=== PATIENT | female | born 1955 | race Caucasian/White ===

== ENCOUNTER 2022-02-19 05:51 | Inpatient (IN) | payer BC, MEDICARE ==
[2022-02-17 13:26] LABS: BASOPHILS # (AUTO) 0.1 X10'3 (0-0.2); BASOPHILS % (AUTO) 0.8 % (0-1); EOSINOPHILS # (AUTO) 0.5 X10'3 (0-0.9); LYMPHOCYTES # (AUTO) 2.5 X10'3 (1.1-4.8); LYMPHOCYTES % (AUTO) 30.6 % (21-51); MEAN CORPUSCULAR HEMOGLOBIN 29.3 PG (27.0-31.0); MEAN CORPUSCULAR HGB CONC 32.7 g/dL (33.0-36.5); MEAN CORPUSCULAR VOLUME 89.6 FL (78-98); MEAN PLATELET VOLUME 8.8 FL (7.4-10.4); MONOCYTES # (AUTO) 0.7 X10'3 (0-0.9); MONOCYTES % (AUTO) 8.5 % (2-12); NEUTROPHILS # (AUTO) 4.4 X10'3 (1.8-7.7); NEUTROPHILS % (AUTO) 54.1 % (42-75); PRE OP HEMATOCRIT 39.4 % (35.0-45.0); PRE OP HEMOGLOBIN 12.9 g/dL (12.0-16.0); PRE OP PLATELET COUNT 227 X10'3 (140-440); RED CELL DISTRIBUTION WIDTH 14.1 % (11.5-14.5)
[2022-02-17 13:38] LABS: PRE OP PROTIME 10.8 SECONDS (9.0-12.0)
[2022-02-17 13:44] LABS: ALBUMIN 3.6 G/DL (3.4-5.0); ALBUMIN/GLOBULIN RATIO 0.9 (1.1-1.5); ALKALINE PHOSPHATASE 76 IU/L (46-116); BLOOD UREA NITROGEN 17 MG/DL (7-18); BUN/CREATININE RATIO 20.7 (6.6-38.0); CALCIUM 9.3 MG/DL (8.5-10.1); CHLORIDE 103 MMOL/L (99-107); CREATININE 0.82 MG/DL (0.40-0.90); PRE OP ALT 45 U/L (30-65); PRE OP ANION GAP 12 (8-16); PRE OP AST 30 U/L (10-37); PRE OP BILIRUB, TOTAL 0.4 MG/DL (0.0-1.0); PRE OP POTASSIUM 4.2 MMOL/L (3.4-5.1); PRE OP SODIUM 140 MMOL/L (135-145); TOTAL CARBON DIOXIDE 25.2 MMOL/L (24-32); TOTAL PROTEIN 7.6 G/DL (6.4-8.2); eGFR 70 ML/MIN
[2022-02-17 13:53] LABS: PRE OP GLUCOSE 303 MG/DL (70-104)
[2022-02-17 14:11] LABS: UA COLLECTION TYPE CLN CATCH MIDSTREAM
[2022-02-17 14:12] LABS: CLARITY,URINE CLEAR (Clear); COLOR,URINE YELLOW (Yellow); GLUCOSE, URINE 500 mg/dl (Neg); KETONES,URINE NEGATIVE (Neg); LEUKOCYTE ESTERASE ,URINE NEGATIVE (Neg); NITRITES, URINE NEGATIVE (Neg); OCCULT BLOOD,URINE NEGATIVE (Neg); PROTEIN,URINE NEGATIVE (Neg); UROBILINOGEN,URINE 0.2 E.U/dL (0.2-1.0)
[2022-02-17 14:45] LABS: HEMOGLOBIN A1C 7.7 % (4.5-6.2)
[2022-02-18 07:38] LABS: ABG BASE EXCESS -1.1 mmol/L (-2.0-2.0); ABG HCO3 23.4 mmol/L (22.0-26.0); ABG OXYGEN SATURATION 97.5 % (94-97); ABG PCO2 (T) 38.3 mmHg (32.0-45.0); ABG PO2 (T) 96.4 mmHg (75.0-100.0); ALLEN'S TEST POSITIVE; FCOHb 0.4 % (0.0-3.9); FMetHb 0.2 % (0.0-1.5); FO2Hb 96.9 % (94-97); TOTAL HEMOGLOBIN 14.1 G/dl (12.0-16.0)
[~2022-02-19] VITALS: Ht 157.5 cm; Wt 86.7 kg
[2022-02-19] VITALS (18 sets, daily range): BP systolic 103–168; BP diastolic 44–74
[2022-02-19] MEDS: Insulin Reg/NS 100units/100mL 100 ML IV SCH ×3 (05:30→22:19)
[~2022-02-19 05:51] MED LIST: AMLO5TAB16 PO; ASPI-611 PO; ATOR10TA70 PO; CARDITONE; CELE-28 PO; CHOL500050 PO; DOCUMENT DATE & TIME OF BETA-BLOCKER PO ONE; ENAL-79 PO; INSU3INS2 SQ; METF-436 PO; METF-438 PO; METO-395 PO; albuterol 2.5 MG/3 ML nebule NEB ONE; ceFAZolin inj. 2,000 MG in dextrose 5%-water 100 ML IV ONE; famotidine 20mg tablet PO ONE; metoprolol tartrate 12.5mg (1/2 tablet) PO ONE; mupirocin 2% nasal ointment 1gm UD NS ONE; ringers solution, lacted 1,000 ML IV SCH; vancomycin 1,500 MG in NS 300ml IV soln IV ONE
[2022-02-19] MEDS ORDERED: epiNEPHrine 1 mg/ml inj ONE (06:05)
[2022-02-19] MEDS ORDERED: ceFAZolin 1000mg inj ONE (06:05)
[2022-02-19] MEDS ORDERED: LORazepam 2 mg/ml vial IV ONE (07:00)
[2022-02-19] MEDS ORDERED: sodium bicarbonate (8.4%) 1 mEq/ml syringe ONE (08:00)
[2022-02-19] MEDS ORDERED: aminocaproic acid 250 MG/1 ML inj. ONE (08:00)
[2022-02-19] MEDS ORDERED: heparin 1,000 units/ml 10ml inj ONE (08:00)
[2022-02-19] MEDS ORDERED: albumin (human) 25% 100 ML IV solution IV ONE (08:00)
[2022-02-19] MEDS ORDERED: NORepinephrine bitart. inj. IV ONE (08:00)
[2022-02-19] MEDS ORDERED: magnesium sulf 1 GM/2 ML ONE (08:00)
[2022-02-19] MEDS ORDERED: heparin 10,000 units/1 ML INJ ONE (08:00)
[2022-02-19] MEDS ORDERED: calcium chloride 100 MG/1 ML inj IV ONE (08:00)
[2022-02-19] MEDS ORDERED: methylPREDNISolone sod succ 1000mg vial ONE (08:00)
[2022-02-19] MEDS ORDERED: protamine sulf. 10mg/ml inj. IV ONE (08:10)
[2022-02-19] MEDS ORDERED: nitroGLYCERIN in D5W 50mg/250ml (Tridil) infusion IV ONE (08:10)
[2022-02-19] MEDS ORDERED: sevoflurane 250ml liquid IH ONE (08:10)
[2022-02-19] MEDS ORDERED: INSULIN R 100 UNIT in NS 100ML (1 UNIT/1 ML) BAG IV ONE (08:10)
[2022-02-19] MEDS ORDERED: fentaNYL /PF 50mcg/ml 5ml ampule ONE ×3 (08:14→09:05)
[2022-02-19] MEDS ORDERED: MIDAZolam 1mg/ml 10ml vial ONE (08:14)
[2022-02-19] MEDS ORDERED: LIDOcaine 1%/PF 5ML 10 MG/ML VIAL ONE (08:27)
[2022-02-19] MEDS ORDERED: propofol inj 20 ML IV ONE (08:27)
[2022-02-19] MEDS ORDERED: rocuronium 10mg/ml inj IV ONE ×3 (08:27)
[2022-02-19 09:13] LABS: ABG BASE EXCESS -0.1 mmol/L (-2.0-2.0); ABG HCO3 23.5 mmol/L (22.0-26.0); ABG OXYGEN SATURATION 99.5 % (94-97); ABG PCO2 34.9 mmHg (32.0-45.0); ABG PO2 275.3 mmHg (75.0-100.0); CL (ABG) 104 mmol/L (98-110); FCOHb 0.1 % (0.0-3.9); FMetHb 0.3 % (0.0-1.5); FO2Hb 99.1 % (94-97); GLUCOSE (ABG) 209 mg/dl (70-105); IONIZED CA (ABG) 1.11 mmol/L (1.10-1.43); TOTAL HEMOGLOBIN 12.1 G/dl (12.0-16.0)
[2022-02-19 09:47] LABS: ABG BASE EXCESS 4.8 mmol/L (-2.0-2.0); ABG HCO3 28.4 mmol/L (22.0-26.0); ABG OXYGEN SATURATION 99.8 % (94-97); ABG PCO2 37.8 mmHg (32.0-45.0); ABG PO2 558.9 mmHg (75.0-100.0); CL (ABG) 102 mmol/L (98-110); FCOHb 0.4 % (0.0-3.9); FMetHb 0.3 % (0.0-1.5); FO2Hb 99.1 % (94-97); GLUCOSE (ABG) 171 mg/dl (70-105); IONIZED CA (ABG) 0.93 mmol/L (1.10-1.43); K (ABG) 3.6 mmol/L (3.5-5.0); TOTAL HEMOGLOBIN 8.3 G/dl (12.0-16.0)
[2022-02-19 10:22] LABS: ACT @ 1.70 U 304 SEC (193-297); ACT @ 2.84 U 439 SEC (260-420); BASELINE ACT 162 SEC (101-148); PATIENT WEIGHT 79.0k KG
[2022-02-19 10:26] LABS: ABG BASE EXCESS VENOUS 4.1 mmol/L (-2.0 - 2.0); ABG HCO3 VENOUS 28.6 mmol/L (21.0-28.0); ABG PO2 VENOUS 47.6 mmHg (25.0-35.0); CL (ABG) 103 mmol/L (98-110); FCOHb VENOUS 0.5 % (0.0- 3.9); FHHb VENOUS 13.8 %; FMetHb VENOUS 0.3 % (0.0 - 0.5); FO2Hb VENOUS 85.4 %; GLUCOSE (ABG) 185 mg/dl (70-105); IONIZED CA (ABG) 1.17 mmol/L (1.10-1.43); K (ABG) 3.8 mmol/L (3.5-5.0); TOTAL HEMOGLOBIN 8.9 G/dl (12.0-16.0)
[2022-02-19 10:47] LABS: ABG BASE EXCESS 0.4 mmol/L (-2.0-2.0); ABG HCO3 23.9 mmol/L (22.0-26.0); ABG OXYGEN SATURATION 99.6 % (94-97); ABG PCO2 33.5 mmHg (32.0-45.0); ABG PO2 357.3 mmHg (75.0-100.0); CL (ABG) 102 mmol/L (98-110); FCOHb 0.7 % (0.0-3.9); FMetHb 0.3 % (0.0-1.5); FO2Hb 98.6 % (94-97); GLUCOSE (ABG) 177 mg/dl (70-105); IONIZED CA (ABG) 1.46 mmol/L (1.10-1.43); TOTAL HEMOGLOBIN 7.7 G/dl (12.0-16.0)
[2022-02-19 11:03] LABS: ABG BASE EXCESS VENOUS 1.1 mmol/L (-2.0 - 2.0); ABG HCO3 VENOUS 25.6 mmol/L (21.0-28.0); ABG PCO2 VENOUS 40.1 mmHg (38.0-51.0); ABG PO2 VENOUS 29.1 mmHg (25.0-35.0); CL (ABG) 102 mmol/L (98-110); FCOHb VENOUS 0.6 % (0.0- 3.9); FHHb VENOUS 40.7 %; FMetHb VENOUS 0.1 % (0.0 - 0.5); FO2Hb VENOUS 58.6 %; GLUCOSE (ABG) 180 mg/dl (70-105); IONIZED CA (ABG) 1.21 mmol/L (1.10-1.43); K (ABG) 3.8 mmol/L (3.5-5.0); TOTAL HEMOGLOBIN 8.5 G/dl (12.0-16.0)
[2022-02-19 11:07] LABS: ACTIVATED CLOTTING TIME 135 SEC (101-148)
[2022-02-19] MEDS ORDERED: nitroGLYCERIN-Tridil 50MG/D5W 250 ML IV SCH (11:15)
[2022-02-19] MEDS ORDERED: sodium phosphate inj. 15 MMOL in dextrose 5%-water 250 ML IV PRN (11:15)
[2022-02-19] MEDS ORDERED: metoclopramide 5 mg/ml inj IV PRN (11:15)
[2022-02-19] MEDS ORDERED: insulin glargine (Lantus) pen - multi-dose SQ PRN (11:15)
[2022-02-19] MEDS ORDERED: sodium phosphate inj. 30 MMOL in dextrose 5%-water 250 ML IV PRN (11:15)
[2022-02-19] MEDS ORDERED: dextrose 50%-water 50ml dispensing syringe IV PRN (11:15)
[2022-02-19] MEDS ORDERED: Neutra Phos packet PO PRN (11:15)
[2022-02-19] MEDS ORDERED: magnesium citrate 296ml oral solution PO PRN (11:15)
[2022-02-19] MEDS ORDERED: sodium chloride 0.45% 1,000 ML IV SCH (11:15)
[2022-02-19] MEDS ORDERED: mineral oil 133ml enema RC PRN (11:15)
[2022-02-19] MEDS ORDERED: magnesium hydroxide 30ml (MOM) UD suspension PO PRN (11:15)
[2022-02-19] MEDS ORDERED: niCARDipine-NS 40mg/200ml IVPB 200 ML IV PRN (11:15)
[2022-02-19] MEDS ORDERED: magnesium 4gm in 100ml NS 100 ML IV PRN (11:15)
[2022-02-19] MEDS ORDERED: bisacodyl 10mg suppository rectal RC PRN (11:15)
[2022-02-19] MEDS ORDERED: acetaminophen 325mg tablet PO PRN ×2 (11:15)
[2022-02-19] MEDS ORDERED: potassium Cl 20 mEq SR tablet PO PRN (11:15)
[2022-02-19] MEDS ORDERED: ondansetron/PF 4mg/2ml inj IV PRN (11:15)
[2022-02-19] MEDS ORDERED: potassium CL 10mEq/100ml bag 100 ML IV PRN (11:15)
[2022-02-19 12:00] LABS: ABG HCO3 23.8 mmol/L (22.0-26.0); ABG OXYGEN SATURATION 99.1 % (94-97); ABG PO2 (T) 295.8 mmHg (75.0-100.0); FCOHb 0.2 % (0.0-3.9); FMetHb 0.4 % (0.0-1.5); FO2Hb 98.5 % (94-97); PEEP 5 cm H2O; RESPIRATORY RATE 14 b/min; TIDAL VOLUME 400 mL; TOTAL HEMOGLOBIN 11.1 G/dl (12.0-16.0)
[2022-02-19 12:01] LABS: BASOPHILS # (AUTO) 0.1 X10'3 (0-0.2); BASOPHILS % (AUTO) 0.8 % (0-1); EOSINOPHILS # (AUTO) 0.3 X10'3 (0-0.9); EOSINOPHILS % (AUTO) 2.3 % (0-6); HEMATOCRIT 30.7 % (35.0-45.0); HEMOGLOBIN 10.2 g/dl (12.0-16.0); LYMPHOCYTES # (AUTO) 2.3 X10'3 (1.1-4.8); LYMPHOCYTES % (AUTO) 17.8 % (21-51); MEAN CORPUSCULAR HEMOGLOBIN 29.7 PG (27.0-31.0); MEAN CORPUSCULAR HGB CONC 33.3 g/dL (33.0-36.5); MEAN CORPUSCULAR VOLUME 89.2 FL (78-98); MEAN PLATELET VOLUME 8.5 FL (7.4-10.4); MONOCYTES # (AUTO) 0.9 X10'3 (0-0.9); MONOCYTES % (AUTO) 6.5 % (2-12); NEUTROPHILS # (AUTO) 9.6 X10'3 (1.8-7.7); NEUTROPHILS % (AUTO) 72.6 % (42-75); PLATELET COUNT 146 X10'3 (140-440); RED BLOOD COUNT 3.44 X10'6 (4.20-5.60); RED CELL DISTRIBUTION WIDTH 13.5 % (11.5-14.5); WHITE BLOOD COUNT 13.2 X10'3 (4.5-11.0)
[2022-02-19 12:13] LABS: ALANINE AMINOTRANSFERASE 21 U/L (12-78); ALBUMIN 3.3 G/DL (3.4-5.0); ALBUMIN/GLOBULIN RATIO 1.5 (1.1-1.5); ALKALINE PHOSPHATASE 41 IU/L (46-116); ANION GAP 8 (8-16); APTT 30 SECONDS (22-32); ASPARTATE AMINO TRANSFERASE 27 U/L (10-37); BILIRUBIN,TOTAL 0.6 MG/DL (0.1-1.0); BLOOD UREA NITROGEN 9 MG/DL (7-18); CHLORIDE 106 MMOL/L (99-107); CREATININE 0.69 MG/DL (0.40-0.90); GLUCOSE 185 MG/DL (70-104); MAGNESIUM 2.2 MG/DL (1.5-2.4); PHOSPHORUS 3.1 MG/DL (2.3-4.5); POTASSIUM 3.6 MMOL/L (3.5-5.1); SODIUM 141 MMOL/L (135-145); TOTAL CARBON DIOXIDE 27.5 MMOL/L (24-32); TOTAL PROTEIN 5.5 G/DL (6.4-8.2); eGFR 85 ML/MIN
[2022-02-19] MEDS: morphine 4 MG/ML inj SYRINge IV PRN ×2 (12:33→13:56)
[2022-02-19] MEDS: albumin (Human) 5% 250ml 250 ML IV PRN ×3 (12:45→16:08)
[2022-02-19] MEDS: magnesium 2GM in 50ml NS 50 ML IV PRN (12:49)
[2022-02-19] MEDS: potassium Cl 20mEq/100mL bag 100 ML IV PRN ×5 (12:51→20:55)
--- NOTE | 2022-02-19 13:28 | NUR ---
CABG Consult: Pt s/p CABGx4 this admit w/ hx T2DM A1C 7.7% per EMR. Pt would benefit from DM/CABG eds once appropriate post-op prior to discharge. Addendum: 02/19/22 at [address] Amended: Links added.
--- NOTE | 2022-02-19 15:37 | NUR ---
PT extubated to 5lpm NC, increased to 7lpm Oxymask, pt mouth breathing, following all commands, still sleepy from sedation, no stridor present, plan to titrate fio2 as tolerated. RN aware. Addendum: 02/19/22 at 1538 by Gale Anyaa RT Amended: Links added.
[2022-02-19] MEDS: ceFAZolin/D5W- 1GM premix 50 ML IV SCH (16:07)
--- NOTE | 2022-02-19 16:12 | NUR ---
Received to room 2012, accompanied by MDs and surgical crew. Placed on ventilator, to cardiac sonographer, arterial line and PA line pressure monitored. Chest tubes to suction at 20 cm. Holder cath to gravity drainage. Dressings are dry and intact. See assessment record. All vasoactive drugs are infusing via central line.
[2022-02-19 18:05] LABS: BASOPHILS # (AUTO) 0.2 X10'3 (0-0.2); EOSINOPHILS % (AUTO) 0.1 % (0-6); HEMATOCRIT 28.8 % (35.0-45.0); HEMOGLOBIN 9.4 g/dl (12.0-16.0); LYMPHOCYTES # (AUTO) 1.2 X10'3 (1.1-4.8); LYMPHOCYTES % (AUTO) 6.9 % (21-51); MEAN CORPUSCULAR HEMOGLOBIN 29.4 PG (27.0-31.0); MEAN CORPUSCULAR HGB CONC 32.6 g/dL (33.0-36.5); MEAN CORPUSCULAR VOLUME 90.2 FL (78-98); MEAN PLATELET VOLUME 8.7 FL (7.4-10.4); MONOCYTES # (AUTO) 0.8 X10'3 (0-0.9); MONOCYTES % (AUTO) 4.9 % (2-12); NEUTROPHILS # (AUTO) 15.1 X10'3 (1.8-7.7); NEUTROPHILS % (AUTO) 87.1 % (42-75); PLATELET COUNT 170 X10'3 (140-440); RED BLOOD COUNT 3.19 X10'6 (4.20-5.60); RED CELL DISTRIBUTION WIDTH 14.1 % (11.5-14.5); WHITE BLOOD COUNT 17.3 X10'3 (4.5-11.0)
[2022-02-19 18:06] LABS: ALBUMIN 4.3 G/DL (3.4-5.0); ANION GAP 14 (8-16); BLOOD UREA NITROGEN 10 MG/DL (7-18); BUN/CREATININE RATIO 9.1 (6.6-38.0); CHLORIDE 109 MMOL/L (99-107); GLUCOSE 263 MG/DL (70-104); MAGNESIUM 2.4 MG/DL (1.5-2.4); PHOSPHORUS 4.8 MG/DL (2.3-4.5); POTASSIUM 3.7 MMOL/L (3.5-5.1); SODIUM 144 MMOL/L (135-145); TOTAL CARBON DIOXIDE 21.1 MMOL/L (24-32); eGFR 50 ML/MIN
--- NOTE | 2022-02-19 18:15 | NUR ---
Patient in room CICU 2011. I have received report from Maura CONNORS and had the opportunity to ask questions and assume patient care.
--- NOTE | 2022-02-19 18:15 | NUR ---
Problems reprioritized. Patient report given, questions answered & plan of care reviewed with Brina CONNORS.
[2022-02-19] MEDS: vancomycin/NS 1 GM ADD-VANTAGE 250 ML IV SCH (19:47)
[2022-02-19] MEDS: morphine 2 MG/ML inj. syringe IV PRN (19:48)
[2022-02-19] MEDS: mupirocin 2% ointment 22GM NS SCH (19:48)
[2022-02-19] MEDS: sennosides/docusate sodium tablet PO SCH (20:00)
--- NOTE | 2022-02-19 20:49 | NUR ---
Patient is impulsive, pulls off NC and tries to pull at PA line. Requiring close monitoring. Falls asleep quickly.
[2022-02-19] MEDS: atorvastatin 10mg tablet PO SCH (21:00)
[2022-02-19 21:29] LABS: PLATELET ESTIMATE NORMAL; TOTAL CELLS COUNTED 100
[2022-02-20] VITALS (23 sets, daily range): BP systolic 91–123; BP diastolic 46–62
[2022-02-20] MEDS: morphine 2 MG/ML inj. syringe IV PRN ×2 (00:08→02:12)
[2022-02-20] MEDS: ceFAZolin/D5W- 1GM premix 50 ML IV SCH ×3 (00:22→16:41)
[2022-02-20 04:10] LABS: ALANINE AMINOTRANSFERASE 20 U/L (12-78); ALBUMIN 3.9 G/DL (3.4-5.0); ALBUMIN/GLOBULIN RATIO 1.7 (1.1-1.5); ALKALINE PHOSPHATASE 34 IU/L (46-116); ANION GAP 10 (8-16); ASPARTATE AMINO TRANSFERASE 29 U/L (10-37); BILIRUBIN,TOTAL 0.5 MG/DL (0.1-1.0); BLOOD UREA NITROGEN 13 MG/DL (7-18); BUN/CREATININE RATIO 18.3 (6.6-38.0); CALCIUM 8.5 MG/DL (8.5-10.1); CHLORIDE 109 MMOL/L (99-107); CREATININE 0.71 MG/DL (0.40-0.90); GLUCOSE 185 MG/DL (70-104); MAGNESIUM 2.1 MG/DL (1.5-2.4); PHOSPHORUS 3.8 MG/DL (2.3-4.5); POTASSIUM 4.8 MMOL/L (3.5-5.1); SODIUM 142 MMOL/L (135-145); TOTAL CARBON DIOXIDE 22.6 MMOL/L (24-32); TOTAL PROTEIN 6.2 G/DL (6.4-8.2); eGFR 83 ML/MIN
[2022-02-20 04:19] LABS: BASOPHILS # (AUTO) 0.1 X10'3 (0-0.2); BASOPHILS % (AUTO) 0.7 % (0-1); EOSINOPHILS # (AUTO) 0.1 X10'3 (0-0.9); EOSINOPHILS % (AUTO) 0.4 % (0-6); HEMATOCRIT 27.1 % (35.0-45.0); HEMOGLOBIN 8.9 g/dl (12.0-16.0); LYMPHOCYTES # (AUTO) 0.7 X10'3 (1.1-4.8); LYMPHOCYTES % (AUTO) 4.2 % (21-51); MEAN CORPUSCULAR HEMOGLOBIN 29.6 PG (27.0-31.0); MEAN CORPUSCULAR HGB CONC 32.7 g/dL (33.0-36.5); MEAN CORPUSCULAR VOLUME 90.5 FL (78-98); MEAN PLATELET VOLUME 9.3 FL (7.4-10.4); MONOCYTES # (AUTO) 0.8 X10'3 (0-0.9); NEUTROPHILS # (AUTO) 14.4 X10'3 (1.8-7.7); NEUTROPHILS % (AUTO) 89.7 % (42-75); PLATELET COUNT 113 X10'3 (140-440); RED BLOOD COUNT 2.99 X10'6 (4.20-5.60); RED CELL DISTRIBUTION WIDTH 14.1 % (11.5-14.5); WHITE BLOOD COUNT 16.1 X10'3 (4.5-11.0)
[2022-02-20] MEDS: morphine 4 MG/ML inj SYRINge IV PRN (04:54)
[2022-02-20] MEDS: magnesium 2GM in 50ml NS 50 ML IV PRN (04:54)
--- NOTE | 2022-02-20 05:17 | NUR ---
Dangled patient at side of the bed with two person assist. Able to stand at side of the bed for a few minutes. Was able to do 3 breaths on flutter valve. Returned to bed without incident. Medicated patient with Morphine for pain level of 7 per patient statement.
--- NOTE | 2022-02-20 06:18 | NUR ---
Problems reprioritized. Patient report given, questions answered & plan of care reviewed with Lorena CONNORS.
[2022-02-20] MEDS ORDERED: ketorolac trometh. 30mg/ml inj. IM SCH (08:00)
[2022-02-20] MEDS: mupirocin 2% ointment 22GM NS SCH ×2 (08:30→20:25)
[2022-02-20] MEDS: metoprolol tartrate 12.5mg (1/2 tablet) PO SCH ×2 (08:30→20:00)
[2022-02-20] MEDS: cholecalciferol (vitamin D3) 1,000 unit (25mcg) tablet PO SCH (08:30)
[2022-02-20] MEDS: aspirin 325mg tablet, delayed-release (Ecotrin) PO SCH (08:30)
[2022-02-20] MEDS: sennosides/docusate sodium tablet PO SCH ×2 (08:31→20:24)
[2022-02-20] MEDS: insulin glargine (Lantus) pen - multi-dose SQ SCH (08:40)
[2022-02-20] MEDS: insulin Lispro (HumaLOG) vial - multi-dose SQ SCH ×2 (08:43→17:21)
[2022-02-20] MEDS: vancomycin/NS 1 GM ADD-VANTAGE 250 ML IV SCH ×2 (08:56→20:25)
--- NOTE | 2022-02-20 10:23 | NUR ---
Right radial arterial line, right pulmonary artery lines, and right internal jugular introducer d/c'd per MD order. Patient tolerated well. Cannula tips intact.
--- NOTE | 2022-02-20 13:35 | NUR ---
Patient in room CICU 2011. I have received report from Lorena CONNORS and had the opportunity to ask questions and assume patient care.
[2022-02-20] MEDS: ketorolac trometh. 30mg/ml inj. IV SCH ×2 (13:44→20:25)
--- NOTE | 2022-02-20 14:18 | NUR ---
Problems reprioritized. Patient report given, questions answered & plan of care reviewed with WAYLON Sykes.
[2022-02-20] MEDS: HYDROcodone/acetaminophen 10/325mg tab PO PRN (14:51)
--- NOTE | 2022-02-20 14:54 | NUR ---
Family, Family to visit pt after pt up for PT. Pt states Torodol did not help her pain. After PT states pain a /. [place] for pain given. 2 given based on pain level. After scanned, asked if she could take just one. Pt encourged to take both. Educated about taking pain meds to allow her to cough/deep breath. Reminder about sternal precautions as well with daughter in room. Pt eating lunch now.
[2022-02-20] MEDS: atorvastatin 10mg tablet PO SCH (20:24)
[2022-02-20] MEDS: Insulin Reg/NS 100units/100mL 100 ML IV SCH (20:35)
[2022-02-21] VITALS (17 sets, daily range): BP systolic 86–129; BP diastolic 46–70
[2022-02-21] MEDS: ceFAZolin/D5W- 1GM premix 50 ML IV SCH (01:49)
[2022-02-21 03:55] LABS: BASOPHILS % (AUTO) 0.1 % (0-1); EOSINOPHILS % (AUTO) 0 % (0-6); HEMATOCRIT 24.4 % (35.0-45.0); LYMPHOCYTES # (AUTO) 1.2 X10'3 (1.1-4.8); LYMPHOCYTES % (AUTO) 7.8 % (21-51); MEAN CORPUSCULAR HEMOGLOBIN 29.4 PG (27.0-31.0); MEAN CORPUSCULAR HGB CONC 32.7 g/dL (33.0-36.5); MEAN CORPUSCULAR VOLUME 90.1 FL (78-98); MONOCYTES % (AUTO) 6.3 % (2-12); NEUTROPHILS # (AUTO) 13.2 X10'3 (1.8-7.7); NEUTROPHILS % (AUTO) 85.8 % (42-75); PLATELET COUNT 110 X10'3 (140-440); RED CELL DISTRIBUTION WIDTH 14.3 % (11.5-14.5); WHITE BLOOD COUNT 15.4 X10'3 (4.5-11.0)
[2022-02-21 04:04] LABS: ALBUMIN 3.2 G/DL (3.4-5.0); ANION GAP 3 (8-16); BLOOD UREA NITROGEN 26 MG/DL (7-18); BUN/CREATININE RATIO 29.2 (6.6-38.0); CALCIUM 7.8 MG/DL (8.5-10.1); CHLORIDE 107 MMOL/L (99-107); CREATININE 0.89 MG/DL (0.40-0.90); GLUCOSE 244 MG/DL (70-104); MAGNESIUM 2.5 MG/DL (1.5-2.4); PHOSPHORUS 4.4 MG/DL (2.3-4.5); POTASSIUM 5.3 MMOL/L (3.5-5.1); SODIUM 137 MMOL/L (135-145); TOTAL CARBON DIOXIDE 27.1 MMOL/L (24-32); eGFR 64 ML/MIN
[2022-02-21] MEDS: ketorolac trometh. 30mg/ml inj. IV SCH ×4 (04:26→20:08)
[2022-02-21] MEDS: HYDROcodone/acetaminophen 10/325mg tab PO PRN ×2 (05:26→09:39)
[2022-02-21] MEDS ORDERED: furosemide 40mg/4ml inj IV ONE (08:10)
[2022-02-21] MEDS: cholecalciferol (vitamin D3) 1,000 unit (25mcg) tablet PO SCH (08:10)
[2022-02-21] MEDS: metoprolol tartrate 12.5mg (1/2 tablet) PO SCH ×2 (08:11→19:56)
[2022-02-21] MEDS: pantoprazole 40mg Tablet.DR PO SCH (08:11)
[2022-02-21] MEDS: potassium Cl 20 mEq SR tablet PO SCH ×2 (08:11→19:57)
[2022-02-21] MEDS: magnesium Cl slow-release 64mg tablet PO SCH ×2 (08:11→19:57)
[2022-02-21] MEDS: sennosides/docusate sodium tablet PO SCH ×2 (08:11→19:57)
[2022-02-21] MEDS: mupirocin 2% ointment 22GM NS SCH (08:11)
[2022-02-21] MEDS: aspirin 325mg tablet, delayed-release (Ecotrin) PO SCH (08:11)
[2022-02-21] MEDS: insulin glargine (Lantus) pen - multi-dose SQ SCH (08:14)
[2022-02-21] MEDS: insulin Lispro (HumaLOG) vial - multi-dose SQ SCH ×4 (08:25→21:50)
--- NOTE | 2022-02-21 11:58 | NUR ---
CABG Consult: Pt post-op day 2 s/p CABGx4 PO 0-25% initial meals past 1.5 days. Noted pt remains quite tired likely impacting PO. Pt sleeping during RD visit; written DM ed w/ RD contact information placed in pt chart. Pt would benefit from written/verbal high protein/HH diet eds once more appropriate. Addendum: 02/21/22 at [address] Amended: Links added.
--- NOTE | 2022-02-21 16:10 | NUR ---
Patient in room PCU 3019. I have received report from Joana CONNORS and had the opportunity to ask questions and assume patient care.
--- NOTE | 2022-02-21 17:39 | NUR ---
patient appears stable in bed eating fruit daughter present. provena in place to sternal incision . prophylactic optifoam to back CDI. No other issues at this time will continue to monitor
--- NOTE | 2022-02-21 18:34 | NUR ---
assisted patient to bathroom, able to void post remov al of brice catheter. report given to farhat CONNORS
[2022-02-21] MEDS: atorvastatin 10mg tablet PO SCH (21:15)
[2022-02-22 02:00] VITALS: BP 115/63
[2022-02-22] MEDS: ketorolac trometh. 30mg/ml inj. IV SCH ×4 (02:52→20:00)
[2022-02-22 06:00] VITALS: BP 130/68
--- NOTE | 2022-02-22 06:37 | NUR ---
Problems reprioritized. Patient report given,WAYLON Horta, questions answered & plan of care reviewed with
[2022-02-22 07:14] LABS: BASOPHILS % (AUTO) 0.3 % (0-1); EOSINOPHILS # (AUTO) 0.1 X10'3 (0-0.9); EOSINOPHILS % (AUTO) 1.1 % (0-6); HEMATOCRIT 25.8 % (35.0-45.0); HEMOGLOBIN 8.4 g/dl (12.0-16.0); LYMPHOCYTES # (AUTO) 1.9 X10'3 (1.1-4.8); LYMPHOCYTES % (AUTO) 17.4 % (21-51); MEAN CORPUSCULAR HEMOGLOBIN 29.9 PG (27.0-31.0); MEAN CORPUSCULAR HGB CONC 32.7 g/dL (33.0-36.5); MEAN CORPUSCULAR VOLUME 91.5 FL (78-98); MEAN PLATELET VOLUME 9.1 FL (7.4-10.4); MONOCYTES # (AUTO) 0.8 X10'3 (0-0.9); MONOCYTES % (AUTO) 7.6 % (2-12); NEUTROPHILS # (AUTO) 8.1 X10'3 (1.8-7.7); NEUTROPHILS % (AUTO) 73.6 % (42-75); PLATELET COUNT 136 X10'3 (140-440); RED BLOOD COUNT 2.82 X10'6 (4.20-5.60); RED CELL DISTRIBUTION WIDTH 14.3 % (11.5-14.5)
[2022-02-22 07:24] LABS: ANION GAP 5 (8-16); BLOOD UREA NITROGEN 27 MG/DL (7-18); BUN/CREATININE RATIO 34.6 (6.6-38.0); CALCIUM 8.3 MG/DL (8.5-10.1); CHLORIDE 109 MMOL/L (99-107); CREATININE 0.78 MG/DL (0.40-0.90); GLUCOSE 183 MG/DL (70-104); POTASSIUM 4.8 MMOL/L (3.5-5.1); SODIUM 142 MMOL/L (135-145); TOTAL CARBON DIOXIDE 27.8 MMOL/L (24-32); eGFR 74 ML/MIN
[2022-02-22] MEDS: sennosides/docusate sodium tablet PO SCH ×2 (08:00→20:00)
[2022-02-22] MEDS: magnesium Cl slow-release 64mg tablet PO SCH ×2 (08:00→20:00)
[2022-02-22] MEDS: potassium Cl 20 mEq SR tablet PO SCH ×2 (08:00→20:00)
[2022-02-22] MEDS: metoprolol tartrate 12.5mg (1/2 tablet) PO SCH ×2 (09:10→20:18)
[2022-02-22] MEDS: aspirin 325mg tablet, delayed-release (Ecotrin) PO SCH (09:11)
[2022-02-22] MEDS: cholecalciferol (vitamin D3) 1,000 unit (25mcg) tablet PO SCH (09:12)
[2022-02-22] MEDS: pantoprazole 40mg Tablet.DR PO SCH (09:12)
[2022-02-22] MEDS: insulin glargine (Lantus) pen - multi-dose SQ SCH (09:22)
[2022-02-22] MEDS: insulin Lispro (HumaLOG) vial - multi-dose SQ SCH ×3 (09:24→20:07)
[2022-02-22 11:00] VITALS: BP 118/63
[2022-02-22] MEDS: HYDROcodone/acetaminophen 10/325mg tab PO PRN ×2 (14:03→20:15)
[2022-02-22 15:00] VITALS: BP 129/63
[2022-02-22 18:00] VITALS: BP 136/67
--- NOTE | 2022-02-22 18:29 | NUR ---
Pt is able to repositions herself throughout shift. Hourly rounding have been performed and patients' needs have been met.
[2022-02-22] MEDS: atorvastatin 10mg tablet PO SCH (20:15)
[2022-02-22 22:00] VITALS: BP 122/71
[2022-02-23 02:00] VITALS: BP 139/69
[2022-02-23] MEDS: ketorolac trometh. 30mg/ml inj. IV SCH ×2 (02:00→08:00)
[2022-02-23 07:00] VITALS: BP 134/73
[2022-02-23 07:48] LABS: BASOPHILS # (AUTO) 0.1 X10'3 (0-0.2); BASOPHILS % (AUTO) 0.6 % (0-1); EOSINOPHILS # (AUTO) 0.5 X10'3 (0-0.9); EOSINOPHILS % (AUTO) 5.4 % (0-6); HEMATOCRIT 27.2 % (35.0-45.0); HEMOGLOBIN 9.1 g/dl (12.0-16.0); LYMPHOCYTES # (AUTO) 2.4 X10'3 (1.1-4.8); LYMPHOCYTES % (AUTO) 24.4 % (21-51); MEAN CORPUSCULAR HEMOGLOBIN 30.3 PG (27.0-31.0); MEAN CORPUSCULAR HGB CONC 33.6 g/dL (33.0-36.5); MEAN CORPUSCULAR VOLUME 90.2 FL (78-98); MEAN PLATELET VOLUME 8.7 FL (7.4-10.4); MONOCYTES # (AUTO) 0.9 X10'3 (0-0.9); MONOCYTES % (AUTO) 9.3 % (2-12); NEUTROPHILS # (AUTO) 5.9 X10'3 (1.8-7.7); NEUTROPHILS % (AUTO) 60.3 % (42-75); PLATELET COUNT 174 X10'3 (140-440); RED BLOOD COUNT 3.01 X10'6 (4.20-5.60); WHITE BLOOD COUNT 9.8 X10'3 (4.5-11.0)
[2022-02-23 07:49] LABS: ALBUMIN 2.9 G/DL (3.4-5.0); ANION GAP 6 (8-16); BLOOD UREA NITROGEN 19 MG/DL (7-18); BUN/CREATININE RATIO 26.8 (6.6-38.0); CALCIUM 8.5 MG/DL (8.5-10.1); CHLORIDE 109 MMOL/L (99-107); CREATININE 0.71 MG/DL (0.40-0.90); GLUCOSE 133 MG/DL (70-104); POTASSIUM 4.2 MMOL/L (3.5-5.1); SODIUM 143 MMOL/L (135-145); TOTAL CARBON DIOXIDE 27.7 MMOL/L (24-32); eGFR 83 ML/MIN
[2022-02-23] MEDS ORDERED: HYDR-3972 PO (07:49)
--- NOTE | 2022-02-23 07:52 | NUR ---
Patient in room PCU 3019. I have received report from Prachi MOON and had the opportunity to ask questions and assume patient care.
[2022-02-23] MEDS: insulin glargine (Lantus) pen - multi-dose SQ SCH (08:00)
[2022-02-23] MEDS: magnesium Cl slow-release 64mg tablet PO SCH (08:00)
[2022-02-23] MEDS: potassium Cl 20 mEq SR tablet PO SCH (08:00)
--- NOTE | 2022-02-23 09:00 | NUR ---
Patient was given her scheduled Lantus dose of 30 units this morning, but i did not give her the correctional/nutritional dose of humalog per charge nurse since she is being discharged right now. I educated the patient and her on the importance of keeping track of her blood sugars at home, especially because of her incision site. Patient said that she understands the importance of this and will make sure she keeps track.
[2022-02-23] MEDS: cholecalciferol (vitamin D3) 1,000 unit (25mcg) tablet PO SCH (09:08)
[2022-02-23] MEDS: sennosides/docusate sodium tablet PO SCH (09:08)
[2022-02-23] MEDS: aspirin 325mg tablet, delayed-release (Ecotrin) PO SCH (09:08)
[2022-02-23] MEDS: pantoprazole 40mg Tablet.DR PO SCH (09:08)
[2022-02-23 09:09] VITALS: BP_SYST 134
[2022-02-23] MEDS: metoprolol tartrate 12.5mg (1/2 tablet) PO SCH (09:09)
--- NOTE | 2022-02-23 10:20 | NUR ---
Discharge instructions reviewed with patient and her . Questions answered and education given on importance of checking her glucose and administering insulin appropriately. IV removed from left hand, catheter intact. No bleeding. Wound vac removed, no bleeding. Incision looks great, no discharge, no signs of infection present. Left incision open to air. Wheeled patient down to lobby and released her to her and helped her get into his car. Patient left [facility] in stable condition.
== END 2022-02-23 10:14 | disposition home or self-care (01) | DRG 236 ==
LOC: PAS IN 05:51 → CICU 2S 12:00 → PCU 3S 02-21 16:22
PROVIDERS: ADMIT Thoracic Surgery (Cardiothoracic Vascular Surgery); ATTEND Thoracic Surgery (Cardiothoracic Vascular Surgery)
PROC: 021209W Bypass Coronary Artery, Three Arteries from Aorta with Autologous Venous Tissue, Open Approach (ICD-10-PCS; 2022-02-19)
PROC: 06BP4ZZ Excision of Right Saphenous Vein, Percutaneous Endoscopic Approach (ICD-10-PCS; 2022-02-19)
PROC: 5A1221Z Performance of Cardiac Output, Continuous (ICD-10-PCS; 2022-02-19)
PROC: B24BZZ4 Ultrasonography of Heart with Aorta, Transesophageal (ICD-10-PCS; 2022-02-19)
PROC: 03HY32Z Insertion of Monitoring Device into Upper Artery, Percutaneous Approach (ICD-10-PCS; 2022-02-19)
PROC: B34HZZZ Ultrasonography of Right Upper Extremity Arteries (ICD-10-PCS; 2022-02-19)
PROC: 02HV33Z Insertion of Infusion Device into Superior Vena Cava, Percutaneous Approach (ICD-10-PCS; 2022-02-19)
PROC: B548ZZA Ultrasonography of Superior Vena Cava, Guidance (ICD-10-PCS; 2022-02-19)
PROC: 02100Z9 Bypass Coronary Artery, One Artery from Left Internal Mammary, Open Approach (ICD-10-PCS; principal; 2022-02-19 08:10)
DX: I25.10 Atherosclerotic heart disease of native coronary artery without angina pectoris (principal); E11.9 Type 2 diabetes mellitus without complications; E78.5 Hyperlipidemia, unspecified; R00.1 Bradycardia, unspecified; I10 Essential (primary) hypertension; Z86.16 Personal history of COVID-19
CPT/HCPCS: 93312; 93325; Z7506; Z7508; 36415; 36600; 71045; 71046; 80048; 80053; 81003; 82330; 82435; 82803; 82947; 82948; 83036; 83735; 84100; 84132; 84295; 85007; 85018; 85025; 85347; 85384; 85610; 85730; 86885; 86900; 86901; 86920; 87081; 87635; 93005; 93880; 93971; 94002; 94010; 94667; 94668; 94760; 97110; 97116; 97161; 97530; A4618; A6258; A6449; A7000; A7048; C1751; G0378; J0171; J0690; J1644; J1815; J1885; J1940; J2060; J2150; J2250; J2270; J2405; J2704; J2720; J2930; J3010; J3370; J3475; J3480; J3490; J7030; J7040; J7050; J7060; J7120; P9045; P9047

== ENCOUNTER 2024-07-29 10:05 | Emergency (ER) | payer BC, MEDICARE ==
[~2024-07-29] VITALS: Ht 160 cm; Wt 83.5 kg
[~2024-07-29 10:05] MED LIST changes: -AMLO5TAB16 PO; -CELE-28 PO; +CELE-389 PO; -DOCUMENT DATE & TIME OF BETA-BLOCKER PO ONE; -ENAL-79 PO; +HYDR-3972 PO; -albuterol 2.5 MG/3 ML nebule NEB ONE; -ceFAZolin inj. 2,000 MG in dextrose 5%-water 100 ML IV ONE; -famotidine 20mg tablet PO ONE; -metoprolol tartrate 12.5mg (1/2 tablet) PO ONE; -mupirocin 2% nasal ointment 1gm UD NS ONE; -ringers solution, lacted 1,000 ML IV SCH; -vancomycin 1,500 MG in NS 300ml IV soln IV ONE
[2024-07-29 10:10] VITALS: TEMP 97.9; O2SAT 98
[2024-07-29] MEDS ORDERED: iohexol 350MG/ML 100ml bottle IV ONE (10:12)
[2024-07-29 10:33] LABS: BASOPHILS # (AUTO) 0.1 X10'3 (0-0.2); BASOPHILS % (AUTO) 1.2 % (0-1); EOSINOPHILS # (AUTO) 0.4 X10'3 (0-0.9); EOSINOPHILS % (AUTO) 5.6 % (0-6); HEMATOCRIT 39.9 % (35.0-45.0); HEMOGLOBIN 12.7 g/dl (12.0-16.0); LYMPHOCYTES # (AUTO) 2.2 X10'3 (1.1-4.8); LYMPHOCYTES % (AUTO) 30.4 % (21-51); MEAN CORPUSCULAR HEMOGLOBIN 26.6 PG (27.0-31.0); MEAN CORPUSCULAR HGB CONC 31.8 g/dL (33.0-36.5); MEAN CORPUSCULAR VOLUME 83.5 FL (78-98); MEAN PLATELET VOLUME 8.8 FL (7.4-10.4); MONOCYTES # (AUTO) 0.5 X10'3 (0-0.9); MONOCYTES % (AUTO) 7.3 % (2-12); NEUTROPHILS # (AUTO) 4.1 X10'3 (1.8-7.7); NEUTROPHILS % (AUTO) 55.5 % (42-75); PLATELET COUNT 236 X10'3 (140-440); RED BLOOD COUNT 4.78 X10'6 (4.20-5.60); RED CELL DISTRIBUTION WIDTH 17.1 % (11.5-14.5); WHITE BLOOD COUNT 7.4 X10'3 (4.5-11.0)
[2024-07-29] MEDS: niCARDipine-NS 40mg/200ml IVPB 200 ML IV ONE (10:33)
[2024-07-29 10:42] LABS: ALBUMIN 3.6 G/DL (3.4-5.0); ANION GAP 10 (8-16); APTT 27 SECONDS (22-32); BLOOD UREA NITROGEN 19 MG/DL (7-18); BUN/CREATININE RATIO 19.6 (10.0-20.0); CALCIUM 8.9 MG/DL (8.5-10.1); CHLORIDE 103 MMOL/L (99-107); CREATININE 0.97 MG/DL (0.40-0.90); GLUCOSE 246 MG/DL (70-104); PROTHROMBIN TIME 10.9 SECONDS (9.0-12.0); SODIUM 141 MMOL/L (135-145); TOTAL CARBON DIOXIDE 27.8 MMOL/L (24-32); eCRCL 46 ML/MIN; eGFR 57 ML/MIN
[2024-07-29 10:59] VITALS: RESP 13
[2024-07-29 11:10] VITALS: BP 171/76; PULSE 70
== END 2024-07-29 12:00 | disposition hospice, inpatient (51) ==
LOC: ER 10:06
DX: I63.89 Other cerebral infarction (principal); E11.9 Type 2 diabetes mellitus without complications; I10 Essential (primary) hypertension; Z91.041 Radiographic dye allergy status; Z91.040 Latex allergy status; Z79.82 Long term (current) use of aspirin; Z79.1 Long term (current) use of non-steroidal anti-inflammatories (NSAID); Z79.899 Other long term (current) drug therapy; Z79.4 Long term (current) use of insulin
CPT/HCPCS: 36415; 70450; 71045; 80048; 82948; 85025; 85610; 85730; 93005; 96365; 99291; J3490; 99285; Q9967

== ENCOUNTER 2025-06-04 10:51 | Emergency (ER) | payer MEDICARE ==
[~2025-06-04] VITALS: Ht 157.5 cm; Wt 82.7 kg
--- NOTE | 2025-06-04 12:10 | Physician Documentation ---
History of Present Illness ~ Chief Complaint: Ingestion Error Stated Complaint: INSULIN MED ERROR Time Seen by MD: 11:32 OK to notify your PCP?: Yes Primary Medical Doctor: NICOLETTE NANCE Source: patient, RN/, RN notes reviewed, old records Mode of Arrival: POV, Ambulatory Exam Limitations: no limitations HPI BED 18 This patient is a 70 y/o female who presents to ED after she accidentally took too much of her insulin. Patient is a type two diabetic and states that she usually takes 100 units of her Lantus, and 5 units of her Lispro before meals. This morning, at approximately 10:15am she accidentally mixed up her medications and took 100 units of her Lispro which caused a significant drop in her BG. She states prior to arrival she did eat some cereal which she states usually raises her blood glucose. Patient has a continuous glucose monitoring device implant to her left arm which updates in real time. Denies any nausea/vomiting, lightheadedness, diaphoresis, or any other physical symptoms at this time. Patient denies any other associated symptoms at this time. Patient denies any other alleviating or exacerbating factors. Medication Reconciliation Allergies: Coded Allergies: erythromycin base (Verified Allergy, Unknown, rash and GI upset, 02/18/22) latex (Verified Allergy, Unknown, 02/19/22) milk (Verified Allergy, Unknown, 02/19/22) Scheduled Aspirin (Aspir 81), 1 TAB PO DAILY, (Reported) Atorvastatin Calcium (Atorvastatin Calcium), 1 TAB PO HS, (Reported) Celecoxib (Celebrex), 1 CAP PO DAILY, (Reported) Cholecalciferol (Vitamin D3) (Vitamin D3), 1 CAP PO DAILY, (Reported) Insulin Glargine/Lixisenatide (Soliqua 100 Unit-33 Mcg/ml Pen), 60 SQ DAILY, (Reported) Metformin HCl (Metformin HCl), 1 TAB PO Q12H, (Reported) Metformin Hcl (Metformin Hcl), 500 MG PO DAILY, (Reported) Metoprolol Succinate (Metoprolol Succinate), 1 TAB PO HS, (Reported) Scheduled PRN Hydrocodone Bit/Acetaminophen (Hydrocodon-Acetaminophn 10-325 tablet), 1 TAB PO Q6H PRN for MODERATE PAIN 4-6 Miscellaneous Medications [carditone], Unknown Dose, (Reported) Past Medical History Past Medical History: CVA/TIA/Stroke, Coronary Artery Disease, Hypertension, Asthma, COPD, Diabetes, Arthritis Past Surgical History: abdominal surgery, coronary bypass surgery Smoking Status: Never smoker Alcohol Use: None Drug Use: none Lives with: Spouse Lives In: Home Review of Systems All Other Systems at this time: Reviewed and Negative ROS As stated in the HPI above, otherwise all other systems have been reviewed and negative. Constitutional: Reports: see HPI Physical Exam Vital Signs: RN Vital Signs have been reviewed: Yes, Temperature: 97.7, Source: Temporal, Heart Rate: 80, Respiratory Rate: 18, BP: 146/64, Pulse Oximetry: 99, Weight: 82.700 Oxygen Flow Rate: 0 Physical Exam General: The patient is well developed, well nourished, nontoxic appearing and is in no acute distress. Skin: [place], warm and dry with no rashes. HEENT: Head was normocephalic and atraumatic. Eyes - pupils equal, round, reactive to light and accommodation. Extraocular movements were intact. Conjunctivae were nonicteric. The mouth and oropharynx were clear with moist mucous membranes. There were no pharyngeal exudates or erythema. Neck: Supple and nontender. There was no jugular venous distention, lymphadenopathy, thyromegaly or masses. Chest: Clear to auscultation bilaterally without wheezes, rales or rhonchi. No accessory muscle use. No dullness to percussion. Heart: Rate regular and rhythmic. S1, S2. No murmurs. Palpation of the chest wall was normal. No rubs or thrills. Abdomen: Soft, nontender and nondistended. Positive bowel sounds. No guarding or rebound. No hepatosplenomegaly or palpable masses. Extremities: No cyanosis, clubbing or edema. The patient moves all extremities. Pulses were equal and symmetric. Neurologic: Motor and sensation grossly intact. A & O x4. Psychologic: The patient was oriented to person, place and time. Progress Results/Orders Reviewed/noted all lab results: Yes Results/Orders Vital Signs 06/04/25 06/04/25 06/04/25 10:59 11:31 13:27 Temp 97.7 97.7 Pulse 80 70 Resp 18 18 12 B/P (MAP) 146/64 114/62 Pulse Ox 99 98 O2 Flow Rate 0 Laboratory Tests Test 06/04/25 11:02 9/7/25 12:06 Glucometer 267 H 175 H Re-Evaluation Re-Evaluation : Re-Evaluation: Improved Progress Patient was seen and examined. Patient is given reassurance. Patient was observed multiple times. Patient had he continuous glucose monitor which was observed and was dropping precipitously while she was eating but ultimately stabilized. Her glucose levels are now increasing. Patient was then discharged home encouraged to follow up with her PMD as needed otherwise lower her long- acting insulin need for tonight and go back to baseline tomorrow. Also she should watch her glucose levels for the next several hours. Do not skip a meal. If anything changes she should have a meal nearby and then returned to the ER if she is unable to control her glucose levels. Medical Decision Making Additional info obtained from: old records Differential Dx:Considerations: Include: Alcohol abuse, Anxiety, Drug Overdose- Accidental, Drug Overdose-Intentional, Encephalopathy, Other Departure Time of Disposition: 13:20 Disposition: 01 HOME / SELF CARE / HOMELESS Impression: Primary Impression: Accidental overdose of insulin Additional Impression: Ingestion error Condition: Stable Discharge Instructions: Insulin Lispro Injection, Type 2 Diabetes Mellitus, Self-Care, Adult Referrals: NO PRIMARY CARE PROVIDER (PCP) Education Educated: Patient Educated regarding: diagnosis, treatment, need for follow up Signature Scribe Signature: Scribed for Gonsalo Tyson MD by Ivette Powers . 06/04/25 12:13 Attestation: The note accurately reflects work and decisions made by me.Gonsalo Tyson MD 06/04/25 12:10 GONSALO TYSON MD Jun 04, 2025 12:10
[2025-06-04 13:27] VITALS: BP 114/62; PULSE 70; RESP 12; TEMP 97.7; O2SAT 98
== END 2025-06-04 13:30 | disposition home or self-care (01) ==
LOC: ER 10:52
DX: T38.3X1A Poisoning by insulin and oral hypoglycemic [antidiabetic] drugs, accidental (unintentional), initial encounter (principal); E11.9 Type 2 diabetes mellitus without complications; I10 Essential (primary) hypertension; I25.10 Atherosclerotic heart disease of native coronary artery without angina pectoris; J44.9 Chronic obstructive pulmonary disease, unspecified; M19.90 Unspecified osteoarthritis, unspecified site; Z86.73 Personal history of transient ischemic attack (TIA), and cerebral infarction without residual deficits; Z88.1 Allergy status to other antibiotic agents; Z91.011 Allergy to milk products; Z91.040 Latex allergy status; Z95.1 Presence of aortocoronary bypass graft; Z79.82 Long term (current) use of aspirin; Y92.89 Other specified places as the place of occurrence of the external cause
CPT/HCPCS: 82948; 99282

== ENCOUNTER 2025-06-20 11:02 | Day surgery (SDC) | payer MEDICARE ==
[2025-06-16 08:25] LABS: MEAN PLATELET VOLUME 8.5 FL (7.4-10.4); RED CELL DISTRIBUTION WIDTH 17.1 % (11.5-14.5)
[2025-06-16 08:35] LABS: APTT 25 SECONDS (22-32); INR 1.0 INR
[2025-06-16 08:39] LABS: CHOL/HDL RATIO 3.6 (0.00-4.99); CREATININE 0.94 MG/DL (0.40-0.90); LDL CHOLESTEROL 66 MG/DL (50-100); TOTAL CARBON DIOXIDE 27.1 MMOL/L (24-32); eGFR 59 ML/MIN
[~2025-06-20] VITALS: Ht 157.5 cm; Wt 84.4 kg
[2025-06-20] VITALS (9 sets, daily range): BP systolic 108–135; BP diastolic 45–66; PULSE 63–70; RESP 10–17; TEMP 98; O2SAT 92–97
[~2025-06-20 11:02] MED LIST changes: +AMLO10TA13 PO; -ATOR10TA70 PO; +ATOR40TA PO; -CARDITONE; +FURO-150 PO; +GABA-530 PO; -HYDR-3972 PO; +INSU100V49; -INSU3INS2 SQ; +LANTUS SUBCUT; +LISI20TA28 PO; +MECO10005 PO; -METF-436 PO; -METO-395 PO; +METO100T7 PO; +NITR0.4T51 SL
[2025-06-20] MEDS ORDERED: heparin 1,000unit/ml 10ml vial 0 ML ONE (11:53)
[2025-06-20] MEDS ORDERED: fentaNYL/PF 50MCG/1 ML 2ML syringe ONE (11:53)
[2025-06-20] MEDS ORDERED: LIDOcaine 1% (10mg/ml) 2ml vial ONE (11:53)
[2025-06-20] MEDS ORDERED: verapamil 2.5 mg/ml inj IV ONE (11:53)
[2025-06-20] MEDS ORDERED: midazolam 1 mg/ML 2ml injection ONE (11:53)
[2025-06-20] MEDS ORDERED: nitroGLYCERIN 500mcg/5mL D5W 0 ML IV ONE (11:54)
--- NOTE | 2025-06-20 11:55 | ELECTROCARDIOGRAPH REPORT ---
[facility] Test Date: 2025-06-20 Test Time: 11:52:49 Pat Name: CAT NDIAYE Department: [facility] Patient ID: [facility]-[id number] Room: Gender: F Patient Transporter: AMY : [id number] Requested By: BERTIN BREWER Order Number: [id number] Reading MD: Dr. MARU Lopez Measurements Intervals [place] Rate: 69 P: 8 MS: 184 QRS: 11 QRSD: 90 T: 97 QT: 410 QTc: 440 Interpretive Statements Sinus rhythm Inferior infarct, old Electronically Signed On 06-20-2025 16:30:[address] MARU Lopez Please click the below link to view image of tracing.
[2025-06-20] MEDS ORDERED: CYAN250010 PO (12:05)
[2025-06-20] MEDS ORDERED: ASCO1TAB43 (12:05)
[2025-06-20] MEDS ORDERED: THIO300C PO (12:05)
[2025-06-20] MEDS ORDERED: LIDOcaine 1% 30ml preserv. free vial ONE (12:23)
[2025-06-20] MEDS ORDERED: iohexol 350 MG/ML 50ML vial IV ONE (13:35)
--- NOTE | 2025-06-20 13:50 | CARDIAC CATH REPORT ---
Cardiac Cath Report Providers to CC CC: JELLY BREWER MD Procedure Comments: 1. Left Heart Catheterization 2. Selective Coronary Angiography 3. Coronary artery bypass angiography 4. Right Femoral artery access 5. Right femoral artery angiography 6. Closure of femoral artery with Perclose x 1 Brief History/Indications: 70yo woman with HTN, HLD, DM, CAD(s/p 4vCABG), Obesity being evaluated for back surgery, found to have anterior/anterolateral ischemia. Techniques: After informed consent was obtained, the patient was brought to the cardiac catheterization laboratory and prepped and draped in usual sterile fashion for left heart catheterization and other procedures mentioned above. The right groin was anesthetized with 1% Lidocaine and the femoral artery accessed via the Seldinger technique after which a 6Fr sheath was placed. Through this a JL4 was used to engage the left coronary artery, a JR4 to engage the right coronary artery, coronary artery bypass grafts, left internal mammary artery, and left ventricle. At the conclusion of the case the sheath was removed and hemostasis obtained with a Perclose device. Findings Findings: HEMODYNAMICS: LV: 138/3 mmHg LVEDP: 13 mmHg Ao: 132/55, MAP 83 mmHg CORONARY ARTERIES: Rt Dominant LMCA: Distal 90% stenosis LAD: Ostial 90% stenosis LCx: 100% ISR of ostial LCx stents RCA: 100% proximal ISR GRAFTS: BARKER-LAD: Patent, distal LAD < 2mm vessel SVG-PDA: Patent SVG-OM1-OM2: Patent, diffusely diseased backfilling LCx Results Results: 1. Severe [place] vessel CAD with patent BARKER-LAD, SVG-OM1-OM2, SVG-PDA 2. RFA access, closed with Perclose x 1 RECOMMENDATIONS: 1. Recommend cont uptiration of max-tolerated GDMT. 2. Ok to proceed with back surgery without further cardiac evaluation BERTIN BREWER MD Jun 20, 2025 13:50
[2025-06-20] MEDS ORDERED: HYDROcodone/acetaminophen 5mg/325mg tablet PO PRN (14:10)
[2025-06-20] MEDS ORDERED: HYDROcodone/acetaminophen 10/325mg tab PO PRN (14:10)
== END 2025-06-20 16:15 | disposition home or self-care (01) ==
LOC: SSTAY O 11:02
PROVIDERS: ATTEND Student in an Organized Health Care Education/Training Program
DX: R94.39 Abnormal result of other cardiovascular function study (principal); I25.810 Atherosclerosis of coronary artery bypass graft(s) without angina pectoris; I10 Essential (primary) hypertension; E78.5 Hyperlipidemia, unspecified; E11.9 Type 2 diabetes mellitus without complications; I25.10 Atherosclerotic heart disease of native coronary artery without angina pectoris; M19.90 Unspecified osteoarthritis, unspecified site; J45.909 Unspecified asthma, uncomplicated; Z88.8 Allergy status to other drugs, medicaments and biological substances; Z98.890 Other specified postprocedural states; Z79.01 Long term (current) use of anticoagulants
CPT/HCPCS: 36415; 80048; 80061; 82948; 83695; 85025; 85610; 85730; 93005; 93459; 99152; A6258; C1760; J1644; J2003; J2250; J3010; J7030; Q0163; Q9967; Z7610; 99153; J3490